=== PATIENT | female | born 1980 | race Caucasian/White ===

== ENCOUNTER → 2021-03-19 | Emergency (ER) | payer SELFPAY ==
[~2021-03-19] VITALS: Ht 157.5 cm; Wt 45.4 kg
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
--- NOTE | 2021-03-19 02:20 | NUR ---
PT TAKEN TO CT VIA VINCE
--- NOTE | 2021-03-19 02:41 | NUR ---
PT RETURNED TO ER BED [address]
--- NOTE | 2021-03-19 02:53 | NUR ---
WOUND CARE DONE TO PT'S LEFT UPPER EYE. DRESSING KEPT C/D/I
--- NOTE | 2021-03-19 04:07 | NUR ---
Patient discharged to home in stable condition. Written and verbal after care instructions given. Patient verbalizes understanding of instruction.pt ambulatory with a steady gait. vvs
[2021-03-19 04:13] VITALS: BP 104/81
== END | disposition home or self-care (01) ==
LOC: ER 01:45
DX: S01.81XA Laceration without foreign body of other part of head, initial encounter (principal); Z88.8 Allergy status to other drugs, medicaments and biological substances; Z88.2 Allergy status to sulfonamides; Z88.1 Allergy status to other antibiotic agents; V49.49XA Driver injured in collision with other motor vehicles in traffic accident, initial encounter; Y93.89 Activity, other specified; Y92.413 State road as the place of occurrence of the external cause; Y99.8 Other external cause status
CPT/HCPCS: 70450-TC; 70486-TC; 71045-TC; 72125-TC